=== PATIENT | female | born 1980 | race Caucasian/White ===

== ENCOUNTER 2016-07-08 10:11 | Outpatient (CLI) | payer MEDICAID ==
[~2016-07-08] VITALS: Ht 152.4 cm; Wt 67.5 kg
[2016-07-08] MEDS ORDERED: PRENAT PO (10:18)
[2016-07-08] MEDS ORDERED: CALC600T11 PO (10:19)
[2016-07-08] MEDS ORDERED: FERR134T PO (10:19)
[2016-07-08 10:33] VITALS: BP 108/71; PULSE 80; RESP 18
--- NOTE | 2016-07-08 11:36 | RADRPT ---
PROCEDURE: US OB biophysical profile. CLINICAL INDICATION: decreased movements , labor TECHNIQUE: Multiple sonographic images of the pelvis were obtained. The images were reviewed on a PACS workstation. COMPARISON: No prior studies are available for comparison. FINDINGS: There is a single viable intrauterine gestation. Cardiac activity is present with 144 beats per min torres martinez. There is a vertex presentation. The placenta is posterior. There is no evidence of placental abruption. There is a normal amount of amniotic fluid with an SOPHIA = 13.6 cm. Biophysical profile: movement 2/2 tone 2/2. breathing 2/2 SOPHIA 2/2 Total 12/27 RPTAT: AA . IMPRESSION: Normal biophysical profile. . .Jerardo Sandoval MD, MD Date Time Electronically viewed and signed by .Jerardo Sandoval MD, on 07/08/2016 11:36 .S/
--- NOTE | 2016-07-08 11:37 | RADRPT ---
PROCEDURE: US OB. CLINICAL INDICATION: Size and dates , labor TECHNIQUE: Multiple sonographic images of the pelvis and gravid uterus were obtained. The images were reviewed on a PACS workstation. COMPARISON: No prior studies are available for comparison. FINDINGS: There is a single viable intrauterine gestation. Cardiac activity is present with 142 beats per min anisa. There is a vertex presentation. The placenta is posterior. There is no evidence for an abruption or placenta previa. There is a normal amount of amniotic fluid with an SOPHIA = 13.6 cm. Measurements were made in order to determine age. The results are as follows: BPD =8.4 cm HC =29.6 cm AC =30.1 cm FL =6.5 cm Estimated gestational age of approximately 33 weeks and 4 days based on ultrasound measurements. Clinical age: 32 weeks and 3 days. The estimated date of delivery is 08/22/16, based on ultrasound measurements. The EFW = 2274 g, 81.5%, based on LMP age. RPTAT: AA IMPRESSION: Single viable intrauterine gestation of approximately 33 weeks and 4 days based on ultrasound measu rements. .Jerardo Sandoval MD, Date Time Electronically viewed and signed by .Jerardo Sandoval MD, on 07/08/2016 11:37 .S/
[2016-07-08] MEDS ORDERED: TERBUTALINE 1 MG/ML INJ SC STA (12:06)
[2016-07-08] MEDS ORDERED: LACTATED RINGER'S 1,000 ML IV SCH ×2 (12:15→13:15)
--- NOTE | 2016-07-08 13:10 | RADRPT ---
PROCEDURE: CERVICAL LENGTH ULTRASOUND CLINICAL INDICATION: Leaking amniotic fluid. Contractions. labor at 32 weeks gestational age. TECHNIQUE: Trans-vaginal imaging of the cervical canal was performed utilizing sommer-scale imaging. Sagittal and transverse images were obtained. Trans-abdominal images were also obtained. The tori ges were reviewed on a PACS workstation. COMPARISON: None. FINDINGS: There is a single live intrauterine . heart rate is 144 beats per minute. Position is vertex and placenta is posterior. There is no placenta previa. The cervix is closed with a length of 3.1 cm. IMPRESSION: 1. Cervical length is 3.1 cm. RPTAT: QQ .Alireza Calle MD, MD Date Time Electronically viewed and signed by .Alireza Calle MD, on 07/08/2016 13:09 .R/
--- NOTE | 2016-07-08 16:01 | HP ---
Date/Time of Note Date/Time of Note DATE: 07/08/16 TIME: 15:53 OB - History Hx of Present Free Text/Dictation Triage H&P Pt is a 35yo at 32+3wks GA presenting for r/o ROM. Pt states she had two episodes of loss of fluid and wet underwear last week. Today she felt a contraction followed by leaking at 11am. States fluid was clear and did not have an odor. Reports normal FM, denies VB. [place] some UCs in triage which resolved s/p Terbutaline. PROCEDURE: CERVICAL LENGTH ULTRASOUND CLINICAL INDICATION: Leaking amniotic fluid. Contractions. labor at 32 weeks gestational age. TECHNIQUE: Trans-vaginal imaging of the cervical canal was performed utilizing sommer-scale imaging. Sagittal and transverse images were obtained. Trans-abdominal images were also obtained. The images were reviewed on a PACS workstation. COMPARISON: None. FINDINGS: There is a single live intrauterine . heart rate is 144 beats per minute. Position is vertex and placenta is posterior. There is no placenta previa. The cervix is closed with a length of 3.1 cm. IMPRESSION: 1. Cervical length is 3.1 cm. PROCEDURE: US OB. CLINICAL INDICATION: Size and dates , labor TECHNIQUE: Multiple sonographic images of the pelvis and gravid uterus were obtained. The images were reviewed on a PACS workstation. COMPARISON: No prior studies are available for comparison. FINDINGS: There is a single viable intrauterine gestation. Cardiac activity is present with 142 beats per minute. There is a vertex presentation. The placenta is posterior. There is no evidence for an abruption or placenta previa. There is a normal amount of amniotic fluid with an SOPHIA = 13.6 cm. Measurements were made in order to determine age. The results are as follows: BPD = 8.4 cm HC = 29.6 cm AC = 30.1 cm FL = 6.5 cm Estimated gestational age of approximately 33 weeks and 4 days based on ultrasound measurements. Clinical age: 32 weeks and 3 days. The estimated date of delivery is 08/22/16, based on ultrasound measurements. The EFW = 2274 g, 81.5%, based on LMP age. RPTAT: AA IMPRESSION: Single viable intrauterine gestation of approximately 33 weeks and 4 days based on ultrasound measurements. PROCEDURE: US OB biophysical profile. CLINICAL INDICATION: decreased movements , labor TECHNIQUE: Multiple sonographic images of the pelvis were obtained. The images were reviewed on a PACS workstation. COMPARISON: No prior studies are available for comparison. FINDINGS: There is a single viable intrauterine gestation. Cardiac activity is present with 144 beats per minute. There is a vertex presentation. The placenta is posterior. There is no evidence of placental abruption. There is a normal amount of amniotic fluid with an SOPHIA = 13.6 cm. Biophysical profile: movement 2/2 tone 2/2. breathing 2/2 SOPHIA 2/2 Total 12/27 RPTAT: AA . IMPRESSION: Normal biophysical profile. Estimated Due Date: Aug 30, 2016 : 3 Para: 1 Care: Good Care Obstetrical Complications: Gestational Diabetes (diet-controlled with goal FSBG ) Past Family/Social History * Past Medical, Surgical, Family and Obstetric Histories reviewed from chart. OB Admission Exam Vital Signs Vital Signs Vital Signs Date Time Temp Pulse Resp B/P Pulse Ox O2 Delivery O2 Flow Rate FiO2 07/08/16 10:33 98.1 80 18 108/71 98 Room Air Physical Exam Membranes: Intact (ROM plus neg) Heart Rate: 120's Accelerations: Accelerations Present Decelerations: No Decelerations Varibility: Moderate Contractions on Admission: >10 Minutes Apart (irregular 6-16min apart. acontractile after Terbuataline) OB Assessment/Plan Other Assessment: 1) No e/o PPROM 2) contractions without PTL Other plan: ->Given negative ROM plus and normal SOPHIA, PPROM seems unlikely at this time. Pt counseled to return to triage for further episodes of vaginal leaking ->Low likelihood of PTL/PTB within next week in the setting of a FFN neg and CL >3cm. PTL precautions reviewed ->FWB reassuring. Category 1 FHT Pt to f/up with Dr. Shi on 07/16 as scheduled. She was counseled to return to triage sooner for decreased FM, PTL, or PPROM concerns and she expressed agreement. Questions answered to pt and partner's satisfaction. DREW MIGUEL MD Jul 08, 2016 16:01
--- NOTE | 2016-07-08 16:06 | TRIAGE ---
OB Triage Datetime Report Generated by CPN: 07/08/2016 16:06 Datetime: 07/08/2016 15:05 Labor Evaluation Frequency: 0 Monitor Mode: External Pattern: Normal: <= 5 Contractions in 10 Minutes Resting Tone Angustura: Relaxed Contraction Comments: IRRIT x1 Heart Rate FHR Baseline Rate: 135 Monitor Mode: External US FHR Baseline Changes: No Baseline Change Variability: Moderate 6-25 bpm Accelerations: 15X15 Decelerations: None Pain Assessment Pain Scale: 0 Pain Presence: None/Denies Pain Type: N/A Datetime: 07/08/2016 14:32 Labor Evaluation Frequency: 0 Monitor Mode: External Pattern: Normal: <= 5 Contractions in 10 Minutes Resting Tone Angustura: Relaxed Contraction Comments: IRRITABILITIES x2 - 30SEC Heart Rate FHR Baseline Rate: 135 Monitor Mode: External US FHR Baseline Changes: No Baseline Change Variability: Moderate 6-25 bpm Accelerations: 15X15 Decelerations: None Category: Category I Datetime: 07/08/2016 13:50 Labor Evaluation Frequency: 3-9 Monitor Mode: External Duration (sec)2399: 50-120 Quality: Mild Pattern: Normal: <= 5 Contractions in 10 Minutes Resting Tone Angustura: Relaxed Heart Rate FHR Baseline Rate: 135 FHR Baseline Changes: No Baseline Change Variability: Moderate 6-25 bpm Accelerations: 15X15 Decelerations: None Category: Category I Pain Assessment Pain Scale: 0 Pain Presence: None/Denies Pain Type: N/A Datetime: 07/08/2016 12:59 Labor Evaluation Frequency: x1 Monitor Mode: External Duration (sec)2399: 40 Quality: Mild Pattern: Normal: <= 5 Contractions in 10 Minutes Resting Tone Angustura: Relaxed Heart Rate FHR Baseline Rate: 130 FHR Baseline Changes: No Baseline Change Variability: Moderate 6-25 bpm Accelerations: 15X15 Decelerations: None Category: Category I Datetime: 07/08/2016 12:20 Labor Evaluation Frequency: 1-16 Monitor Mode: External Duration (sec)2399: 50-80 Quality: Mild Pattern: Normal: <= 5 Contractions in 10 Minutes Resting Tone Angustura: Relaxed Heart Rate FHR Baseline Rate: 130 Monitor Mode: External US FHR Baseline Changes: No Baseline Change Variability: Moderate 6-25 bpm Accelerations: 15X15 Decelerations: Variable Category: Category II Comments: Vx1 Pain Assessment Pain Scale: 0 Pain Presence: None/Denies Pain Type: N/A Datetime: 07/08/2016 12:02 Stage of : OB Triage Datetime: 07/08/2016 11:19 Labor Evaluation Frequency: 6-15 Monitor Mode: External Duration (sec)2399: 50-100 Quality: Mild Pattern: Normal: <= 5 Contractions in 10 Minutes Resting Tone Angustura: Relaxed Contraction Comments: PT DOES NOT FEEL CTX Heart Rate FHR Baseline Rate: 135 Monitor Mode: External US FHR Baseline Changes: No Baseline Change Variability: Moderate 6-25 bpm Accelerations: 15X15 Decelerations: Variable Comments: V x1 Datetime: 07/08/2016 11:02 EGA: 32.3 Datetime: 07/08/2016 10:43 Stage of : OB Triage Assessment Type: Triage Maternal Assessment Level of Consciousness: Fully Conscious Headache: Denies Blurred Vision: No Respiratory Effort: Unlabored; Regular Rhythm; Equal Expansion Breath Sounds, Left: Clear and Equal Breath Sounds, Right: Clear and Equal Nausea/Vomiting: Denies RUQ Epigastric Pain: Denies Lower Extremities Edema: None Degree: None Upper Extremities Edema: None Degree: None Facial Edema: None Temperature Route: Oral Fall Risk Assessment History of Falling: (0) No Secondary Diagnosis: (0) No Ambulatory Aid: (0) Bedrest/Nurse Assist IV Therapy: (0) No Gait: (0) Normal/Bedrest/Immobile Mental Status: (0) Oriented to Own Ability Fall Score: 0 Fall Risk Score Definition: No Risk: No action required Pain Assessment Pain Scale: 0 Pain Presence: None/Denies Pain Type: N/A Datetime: 07/08/2016 10:37 Time of Arrival: 07/08/2016 10:08 Arrived By: Wheelchair Arrived From: Home Chief Complaint: LEAKING - 2x A WEEK AGO, x1 07/07/16 Movement: Decreased Contractions: Denies/Absent Rupture of Membranes: Unsure Vaginal Bleeding: None Vaginal Discharge: Denies Recent Sexual Intercouse: Denies Abdominal Trauma: Not Applicable Patient Complaints: Other Time Provider Notified: 07/08/2016 10:53 Provider Notified: MARIELA Initial Plan: EFM x2, ROM+, FFN, BPP, EFW
== END 2016-07-08 15:45 | disposition home or self-care (01) ==
LOC: OBT 10:11 → L-D 10:12 → OBT 15:45
PROVIDERS: ATTEND Obstetrics & Gynecology
DX: O60.03 Preterm labor without delivery, third trimester (principal); O09.523 Supervision of elderly multigravida, third trimester; Z3A.32 32 weeks gestation of pregnancy
CPT/HCPCS: 36415; 76815; 76817; 76818; 82731; 84112; 96360; 96372; J3105; J7120; Z7500; G0463

== ENCOUNTER 2016-08-15 16:03 | Inpatient (IN) | payer MEDICAID ==
[~2016-08-15] VITALS: Ht 167.6 cm; Wt 105.0 kg
[~2016-08-15 16:03] MED LIST: CALC600T11 PO; FERR134T PO; PRENAT PO
[2016-08-15] MEDS ORDERED: LACTATED RINGER'S 1,000 ML IV SCH (16:08)
[2016-08-15] MEDS ORDERED: METHYLERGONOVINE 0.2 MG INJ IM PRN ×2 (16:30)
[2016-08-15] MEDS ORDERED: OXYTOCIN 30 UNITS/LR 500 ML IV SCH (16:30)
[2016-08-15] MEDS ORDERED: AMPICILLIN 2 GM/NS (PMX) 100 ML IV SCH (16:30)
[2016-08-15] MEDS ORDERED: MISOPROSTOL 200 MCG TAB PR PRN ×2 (16:30)
[2016-08-15] MEDS ORDERED: OXYTOCIN 30 UNITS/LR 500 ML IV PRN ×2 (16:30)
[2016-08-15] MEDS ORDERED: CARBOPROST 250 MCG INJ IM PRN ×2 (16:30)
[2016-08-15] MEDS ORDERED: CEFAZOLIN 2 GM/50 ML (PMX) 50 ML IV SCH (16:30)
[2016-08-15 17:11] LABS: ADD SCAN DIFF NO
[2016-08-15 17:16] LABS: BASOPHILS % 0.4 % (0.0-2.0); EOSINOPHILS # 0.1 10^3/ul (0.0-0.5); EOSINOPHILS % 1.2 % (0.0-7.0); HEMATOCRIT 39.3 % (37.0-47.0); HEMOGLOBIN 13.4 g/dl (12.0-16.0); LYMPHOCYTES # 2.2 10^3/ul (0.8-2.9); LYMPHOCYTES % 39.2 % (15.0-51.0); MEAN CORPUSCULAR HEMOGLOBIN 32.1 pg (29.0-33.0); MEAN CORPUSCULAR HGB CONC 34.1 g/dl (32.0-37.0); MEAN PLATELET VOLUME 11.7 fl (7.4-10.4); MONOCYTE # 0.5 10^3/ul (0.3-0.9); MONOCYTES % 8.3 % (0.0-11.0); NEUTROPHIL # 2.9 10^3/ul (1.6-7.5); NEUTROPHILS % 50.5 % (39.0-77.0); PLATELET COUNT 223 10^3/UL (140-415); RED BLOOD COUNT 4.18 10^6/ul (4.20-5.40); RED CELL DISTRIBUTION WIDTH 12.8 % (11.5-14.5); WHITE BLOOD COUNT 5.7 10^3/ul (4.8-10.8)
[2016-08-15 17:26] LABS: INR 0.87; PROTIME 11.8 Sec (12.2-14.2); PT RATIO 0.9
[2016-08-15 17:27] LABS: PARTIAL THROMBOPLASTIN TIME 25.1 Sec (25.0-35.0)
[2016-08-15 20:19] VITALS: Ht 167.6 cm; Wt 105.0 kg
[2016-08-15 20:20] VITALS: BP 129/82; PULSE 83; RESP 16
[2016-08-15] MEDS ORDERED: AMPICILLIN 1 GM/NS (PMX) 50 ML IV SCH (20:30)
[2016-08-15] MEDS ORDERED: CITRIC ACID/NA CITRATE 30 ML CUP PO ONE (20:30)
[2016-08-15] MEDS ORDERED: morphine SULFATE/PF (10 MG/10 ML) INJ ONE (20:51)
[2016-08-15] MEDS ORDERED: FENTAnyl 50 MCG/ML VIAL ONE (20:51)
[2016-08-15] MEDS ORDERED: ZOLPIDEM 5 MG TAB PO PRN (21:00)
[2016-08-15] MEDS ORDERED: DIPHENHYDRAMINE 50 MG INJ IV PRN (21:00)
[2016-08-15] MEDS ORDERED: NALOXONE (0.4 MG/ML) INJ IV PRN (21:00)
[2016-08-15] MEDS ORDERED: ONDANSETRON 4 MG INJ IV PRN (21:00)
[2016-08-15] MEDS ORDERED: HYDROmorphONE 1 MG/ML SYG IV PRN (21:00)
[2016-08-15] MEDS ORDERED: DEXAMETHASONE 4 MG/ML 1 ML INJ ONE (21:21)
--- NOTE | 2016-08-15 21:56 | HP ---
Date/Time of Note Date/Time of Note DATE: 08/15/16 TIME: 21:54 OB - History Hx of Present Free Text/Dictation @37+6 wks GA with Hx of previous c/section in labor : 3 Para: 1 Care: Good Care Ultrasounds: Normal mid trimester US Obstetrical Complications: None Medical Complications: None Past Family/Social History * Past Medical, Surgical, Family and Obstetric Histories reviewed from chart. OB Admission Exam Vital Signs Vital Signs Vital Signs Date Time Temp Pulse Resp B/P Pulse Ox O2 Delivery O2 Flow Rate FiO2 08/15/16 20:20 98.3 83 16 129/82 Room Air Physical Exam HEENT: WNL Abdomen: WNL Extremities: Normal Cervical Dilatation: 2cm Effacement: 75% Station: -1 Membranes: Intact Heart Rate: 140's Accelerations: Accelerations Present Decelerations: No Decelerations Varibility: Moderate Contractions on Admission: 6-10 Minutes Apart Last 72 hours Lab Results CBC & BMP 08/15/16 16:52 OB Assessment/Plan Reason for admission: section Plan: Section RUPERT SIERRA M.D. Aug 15, 2016 21:56
--- NOTE | 2016-08-15 21:57 | OPR ---
Operative Report Planned Procedure Free Text/Dictation @37+6 wks GA with Hx of previous c/section in labor Procedure date Aug 15, 2016 Procedure(s) Repeat c/section Performed by: RUPERT SIERRA M.D. Assisting provider: NASREEN LEE MD Pre-procedure diagnosis @37+6 wks GA with Hx of previous c/section in labor Anesthesia Type: spinal Procedure Description Under satisfactory [] anesthesia, the patient was prepped and draped and placed in a supine position, tilted to the left. Pfannenstiel incision was made, carried through the subcutaneous tissue. Bleeders brought under control with electrocautery. Fascia incised to the length of the incision. Rectus muscles from the fascia, divided midline. Peritoneum exposed, entered through a transverse incision. Exploration of abdomen revealed gravid uterus. Bladder flap was developed. Transverse incision was made in the lower segment of the uterus. Amniotic sac ruptured. [] amniotic fluid noted. [] Nasal oropharyngeal suction was performed. The baby was handed to the team for immediate attention. The placenta was delivered manually intact. Uterine cavity was cleaned with wet sponge and drainage established. Uterus closed in 2 layers using [] in continuous fashion. Peritoneal cavity irrigated with warm saline. Sponge, needle and instrument count reported to be correct. Abdominal peritoneum closed with [] continuously. Rectus muscle approximated with []. Fascia closed with [], and skin closed with dermoband. Estimated blood loss [600 ]mL. Urine bag contained []mL of urine Post-Procedure Findings: Live Baby [], Apgars [] and [], weight [], position [], [] presentation []cord. Specimen removed: Yes Complications: None Pt Condition post procedure: stable Disposition: PACU Physician Certification I, the undersigned physician, hereby certify that I have discussed the procedure described in this consent form with this patient (or the patient's legal community engagement representative), including: * The risk and benefits of the procedure; * Any adverse reactions that may reasonably be expected to occur; * Any alternative efficacious methods of treatment which may be medically viable ; * The potential problems that may occur during recuperation; * Potential for blood transfusion and associated risks/benefits; and * Any research or economic interest I may have regarding this treatment. I further certify that the patient/legally responsible person was encouraged to ask question and that all questions were answered. RUPERT SIERRA M.D. Aug 15, 2016 21:57
[2016-08-15] MEDS: KETOROLAC 30 MG INJ IV PRN (22:47)
--- NOTE | 2016-08-15 23:58 | DELSUM ---
Delivery Summary A-C Datetime Report Generated by CPN: 08/15/2016 23:57 DELIVERY PERSONNEL Ent Physician: Long, Freda MATERNAL INFORMATION Delivery Anesthesia: Spinal Medications in Delivery: SEE ANESTHESIA Estimated Blood Loss (ml): 600 Placenta Cultured: No Maternal Complications: Other Other Maternal Complications: GDM DIET CONTROLLED LABOR SUMMARY EDC: 08/30/2016 00:00 No. Babies in Womb: 1 Attempted: No Labor Anesthesia: Intrathecal LABOR INFORMATION Reason for Induction: Not Applicable Oxytocin: N/A Group B Beta Strep: Positive Antibiotics # of Doses: 3 Antibiotics Time of Last Dose: 08/15/2016 21:06 Steroids Given: None Reason Steroids Not Administered: Not Applicable MEMBRANES Membranes Rupture Method: Artificial Rupture of Membranes: 08/15/2016 21:28 Length of Rupture (hr): 0.02 Amniotic Fluid Color: Bloody Amniotic Fluid Amount: Large Amniotic Fluid Odor: None STAGES OF LABOR Stage 3 hr: 0 Stage 3 min: 0 CSECTION DELIVERY Primary Indication: Repeat Elective CSection Urgency: Non Elective CSection Incidence: Repeat Labor: Labor Elective: Nonelective CSection Incision: Lower Uterine Transverse BABY A INFORMATION Infant Delivery Date/Time: 08/15/2016 21:29 Method of Delivery: Born in Route : No : N/A Forceps: N/A Vacuum Extraction: N/A Shoulder Dystocia : N/A SHOULDER DYSTOCIA BABY A Infant Delivery Date/Time: 08/15/2016 21:29 PRESENTATION/POSITION BABY A Presentation: Cephalic Cephalic Presentation: Vertex Vertex Position: Left Occipital Anterior Breech Presentation: N/A PLACENTA INFORMATION BABY A Placenta Delivery Time : 08/15/2016 21:29 Placenta Method of Delivery: Manual Removal Placenta Status: Delivered SCORES BABY A Heart Rate 1 min: >100 bpm Resp Effort 1 min: Good Cry Reflex Irritability 1 min: Cough/Sneeze/Pulls Away Muscle Tone 1 min: Active Motion Color 1 min: Body Raven, Extremit Blue Resuscitation Effort 1 min: Tactile Stimulation SCORE 1 MIN: 9 Heart Rate 5 min: >100 bpm Resp Effort 5 min: Good Cry Reflex Irritability 5 min: Cough/Sneeze/Pulls Away Muscle Tone 5 min: Active Motion Color 5 min: Body Raven, Extremit Blue Resuscitation Effort 5 min: Tactile Stimulation SCORE 5 MIN: 9 INFORMATION BABY A Gestational Age at Delivery: 37.6 Gestational Status: Early Term- 37- 38.6 Weeks Infant Outcome : Liveborn Condition : Stable Infant Sex: Male IDENTIFICATION/MEDS BABY A ID Band Number: [id number] ID Band Location: Right Leg; Left Arm Sensor Applied: Yes Sensor Number: [id number] Sensor Location : Cord Clamp Vitamin K Given : Not Given Erythromycin Given: Not Given WEIGHT/LENGTH BABY A Birthweight (gm): 3440 Weight (lb): 7 Weight (oz): 9 Infant Length (in): 20.00 Infant Length (cm): 50.80 CORD INFORMATION BABY A No. Cord Vessels: 3 Nuchal Cord : N/A Cord Blood Taken: Yes Suction: Mouth; Nose ASSESSMENT BABY A Infant Complications: None Physical Findings at Delivery: Within Normal Limits Infant Respirations: Appears Normal Ship Liner/ALS Called : No Infant Care By: PACO RT; KARISSA HAYES Transferred To: Remains with Mother
[2016-08-16] MEDS: HYDROmorphONE 1 MG/ML SYG IV PRN ×2 (00:01→04:48)
[2016-08-16 01:00] VITALS: BP 120/81; PULSE 75; RESP 18
[2016-08-16] MEDS ORDERED: METHYLERGONOVINE 0.2 MG INJ IM PRN (01:00)
[2016-08-16] MEDS ORDERED: MISOPROSTOL 200 MCG TAB PR PRN (01:00)
[2016-08-16] MEDS ORDERED: LANOLIN 7 GM TUBE TOP PRN (01:00)
[2016-08-16] MEDS ORDERED: CARBOPROST 250 MCG INJ IM PRN (01:00)
[2016-08-16] MEDS ORDERED: OXYTOCIN 30 UNITS/LR 500 ML IV PRN (01:00)
[2016-08-16] MEDS: KETOROLAC 30 MG INJ IV PRN ×3 (03:34→20:20)
[2016-08-16 03:35] VITALS: BP_SYST 111; BP_SYST 118; BP_DIAS 61; BP_DIAS 76; PULSE 69; PULSE 84; RESP 18
[2016-08-16] MEDS: LACTATED RINGER'S 1,000 ML IV SCH ×3 (03:35→16:50)
[2016-08-16] MEDS: IBUPROFEN 600 MG TAB PO SCH ×3 (06:00→17:13)
[2016-08-16 07:40] VITALS: BP 120/73; PULSE 95; RESP 18
[2016-08-16 08:05] LABS: ADD SCAN DIFF NO
[2016-08-16 08:07] LABS: BASOPHILS % 0.1 % (0.0-2.0); HEMATOCRIT 31.4 % (37.0-47.0); HEMOGLOBIN 10.7 g/dl (12.0-16.0); LYMPHOCYTES # 1.3 10^3/ul (0.8-2.9); LYMPHOCYTES % 13.9 % (15.0-51.0); MEAN CORPUSCULAR HEMOGLOBIN 32.1 pg (29.0-33.0); MEAN CORPUSCULAR HGB CONC 34.1 g/dl (32.0-37.0); MEAN CORPUSCULAR VOLUME 94.3 fl (82.0-101.0); MEAN PLATELET VOLUME 11.6 fl (7.4-10.4); MONOCYTE # 0.3 10^3/ul (0.3-0.9); MONOCYTES % 3.1 % (0.0-11.0); NEUTROPHILS % 82.6 % (39.0-77.0); PLATELET COUNT 186 10^3/UL (140-415); RED BLOOD COUNT 3.33 10^6/ul (4.20-5.40); RED CELL DISTRIBUTION WIDTH 12.9 % (11.5-14.5); WHITE BLOOD COUNT 9.6 10^3/ul (4.8-10.8)
[2016-08-16 12:28] VITALS: BP 102/55; PULSE 83; RESP 19
[2016-08-16 16:00] VITALS: BP 99/56; PULSE 96; RESP 19
[2016-08-16 20:00] VITALS: BP 103/66; PULSE 88; RESP 19
[2016-08-16] MEDS: SENNA/DOCUSATE NA (8.6MG/50MG) TAB PO SCH (20:18)
[2016-08-16] MEDS: OXYCODONE/ACETAMINOPHEN (5/325) TAB PO PRN (23:22)
[2016-08-17] MEDS ORDERED: IBUPROFEN 600 MG TAB PO SCH
[2016-08-17] MEDS: LACTATED RINGER'S 1,000 ML IV SCH ×3 (00:18→12:16)
[2016-08-17 04:30] VITALS: BP 101/56; PULSE 87; RESP 19
[2016-08-17] MEDS: IBUPROFEN 600 MG TAB PO SCH ×4 (06:38→18:08)
[2016-08-17 08:15] VITALS: BP 99/63; PULSE 87; RESP 18
--- NOTE | 2016-08-17 08:31 | QN ---
Documentation Comment POD#2 is stable afebrile tolerates diet No VB +Flatus +Voids VS stable Gen NAD Abd soft NT ND Incision intact Genitalia :No blood at perinium --->Discharge plan tomorrow --->Ambulation RUPERT SIERRA M.D. Aug 17, 2016 08:31
--- NOTE | 2016-08-17 08:31 | QN ---
Documentation Comment Late Entry: 08/16/2016 POD#1 is stable afebrile tolerates diet No VB +Flatus +adequate urine VS stable Gen NAD Abd soft NT ND Incision intact Genitalia :No blood at perinium --->Discharge plan tomorrow --->Ambulation RUPERT SIERRA M.D. Aug 17, 2016 08:31
[2016-08-17] MEDS ORDERED: INFLUENZA VIRUS VACCINE 0.5 ML (DISPENSING) IM* ONE (09:00)
[2016-08-17] MEDS: SENNA/DOCUSATE NA (8.6MG/50MG) TAB PO SCH ×2 (10:59→21:11)
[2016-08-17 15:46] VITALS: BP 140/85; PULSE 98; RESP 18
[2016-08-17] MEDS: OXYCODONE/ACETAMINOPHEN (5/325) TAB PO PRN (15:46)
[2016-08-17 20:00] VITALS: BP 136/85; PULSE 78; RESP 18
[2016-08-18] MEDS: OXYCODONE/ACETAMINOPHEN (5/325) TAB PO PRN (00:46)
[2016-08-18] MEDS: IBUPROFEN 600 MG TAB PO SCH ×3 (05:35→11:52)
[2016-08-18 08:30] VITALS: BP 122/76; PULSE 97; RESP 14
[2016-08-18] MEDS ORDERED: DIPHTH/TET/ACEL PERTUSS (ADULT) 0.5 ML VIAL IM* ONE (09:00)
[2016-08-18] MEDS: SENNA/DOCUSATE NA (8.6MG/50MG) TAB PO SCH (09:36)
== END 2016-08-18 14:20 | disposition home or self-care (01) | DRG 766 ==
LOC: L-D 16:03 → PP1 08-16 00:48 → EDSTATUS 08-30 16:02
PROVIDERS: ADMIT Obstetrics & Gynecology; ATTEND Obstetrics & Gynecology
PROC: 10D00Z1 Extraction of Products of Conception, Low, Open Approach (ICD-10-PCS; principal; 2016-08-15 21:00)
DX: O34.211 Maternal care for low transverse scar from previous cesarean delivery (principal); Z37.0 Single live birth; Z3A.37 37 weeks gestation of pregnancy
CPT/HCPCS: 82947; 82962; 85025; 85610; 85730; 86592; 86703; 86850; 86900; 86901; 90686; 90715; 94760; 99464; J0290; J0690; J1100; J1170; J1885; J2274; J2405; J2590; J3010; J7120

== ENCOUNTER 2016-08-22 20:01 | Emergency (ER) | payer MEDICAID ==
[~2016-08-22] VITALS: Ht 160 cm; Wt 63.5 kg
[2016-08-22 20:21] VITALS: Ht 160 cm; Wt 63.5 kg
== END 2016-08-22 20:56 | disposition left against medical advice (07) ==
LOC: FTE 20:01 → E/R 20:56
DX: Z53.21 Procedure and treatment not carried out due to patient leaving prior to being seen by health care provider (principal)